=== PATIENT | female | born 1990 | race Caucasian/White ===

== ENCOUNTER 2017-09-06 12:23 | Emergency (ER) | payer MEDICAID ==
[~2017-09-06] VITALS: Ht 165.1 cm; Wt 94.8 kg
[2017-09-06 12:28] VITALS: Ht 165.1 cm; Wt 94.8 kg
[2017-09-06 13:23] LABS: BASOPHIL % 0.1 % (0-2); PLATELET COUNT 282 x10^3mcL (130-400); RED CELL DISTRIBUTION WIDTH 12.9 % (11.5-14.5)
[2017-09-06 13:30] LABS: CALCIUM 9.8 mg/dL (8.5-10.1); CARBON DIOXIDE 27.4 mmol/L (21-32); CHLORIDE SERUM 105 mmol/L (98-107); GFR1 > 60 mL/min; GLUCOSE SERUM 124 mg/dL (74-106); POTASSIUM SERUM 3.9 mmol/L (3.5-5.1); SODIUM SERUM 143 mmol/L (136-145)
[2017-09-06 13:37] LABS: ALBUMIN 4.2 g/dL (3.4-5.0); ALKALINE PHOSPHATASE 39 U/L (46-116); ALT/SGPT 95 U/L (14-59); AST/SGOT 44 U/L (15-37); BILIRUBIN TOTAL 0.56 mg/dL (0.20-1.00); LIPASE 80 IU/L (73-393); TOTAL PROTEIN, SERUM 8.3 g/dL (6.4-8.2)
[2017-09-06 14:03] VITALS: BP 123/76
== END 2017-09-06 14:03 | disposition home or self-care (01) ==
LOC: ED 12:23
PROVIDERS: Emergency Medicine
DX: R10.11 Right upper quadrant pain (principal); R11.2 Nausea with vomiting, unspecified
CPT/HCPCS: 36415; J3010; Q0162

== ENCOUNTER 2020-07-23 10:10 | Emergency (ER) | payer BC, MEDICAID ==
[~2020-07-23] VITALS: Ht 165.1 cm; Wt 88.0 kg
[2020-07-23 10:48] VITALS: Ht 165.1 cm; Wt 88.0 kg
[2020-07-23 14:10] LABS: PLATELET COUNT 274 x10^3mcL (179-408); RED CELL DISTRIBUTION WIDTH 13.4 % (12.3-17.7)
[2020-07-23 14:36] LABS: CALCIUM 9.3 mg/dL (8.5-10.1); CARBON DIOXIDE 28.9 mmol/L (21-32); CHLORIDE SERUM 106 mmol/L (98-107); CREATININE SERUM 0.9 mg/dL (0.6-1.0); GFR1 > 60 mL/min; GLUCOSE SERUM 120 mg/dL (74-106); SODIUM SERUM 146 mmol/L (136-145)
[2020-07-23 14:43] LABS: ALBUMIN 4.4 g/dL (3.4-5.0); ALKALINE PHOSPHATASE 45 U/L (46-116); ALT/SGPT 58 U/L (14-59); AST/SGOT 27 U/L (15-37); BILIRUBIN TOTAL 0.6 mg/dL (0.20-1.00); LIPASE 61 IU/L (73-393)
[2020-07-23 14:44] LABS: TOTAL PROTEIN, SERUM 8.3 g/dL (6.4-8.2)
[2020-07-23 16:35] VITALS: BP 118/70
[2020-07-23 18:00] LABS: BAND NEUTROPHIL 3 % (0-10); MONOCYTE 3 % (0-7); SEGMENTED NEUTROPHILS 89 % (37-75)
[2020-07-23 18:02] LABS: PLATELET MORPHOLOGY PLATELETS NORMAL; rbc morphology (normal/abnorm) NORMAL (NORMAL)
== END 2020-07-23 16:35 | disposition home or self-care (01) ==
LOC: ED 10:10
PROVIDERS: Emergency Medicine
DX: N23 Unspecified renal colic (principal); R11.10 Vomiting, unspecified
CPT/HCPCS: J1885; J7120; Q0162